=== PATIENT | male | born 1985 | race Caucasian/White ===

== ENCOUNTER 2016-09-19 16:22 | Emergency (ER) | payer BC ==
[~2016-09-19] VITALS: Wt 79.4 kg
[2016-09-19] MEDS ORDERED: SUBOXONE 8 MG-1 EACH SL (16:26)
[2016-09-19] MEDS ORDERED: CLINDAMYCIN150 MG PO (17:33)
[2016-09-19] MEDS ORDERED: NAPROSYN500 MG PO (17:34)
== END 2016-09-19 17:46 | disposition home or self-care (01) ==
LOC: ED 16:22
DX: S61.032A Puncture wound without foreign body of left thumb without damage to nail, initial encounter (principal); F17.200 Nicotine dependence, unspecified, uncomplicated; W22.8XXA Striking against or struck by other objects, initial encounter; Y93.89 Activity, other specified; Y92.9 Unspecified place or not applicable; Y99.9 Unspecified external cause status

== ENCOUNTER → 2018-05-24 | Outpatient (CLI) | payer BC ==
[~2018-05-24] MED LIST: CLINDAMYCIN150 MG PO; NAPROSYN500 MG PO; SUBOXONE 8 MG-1 EACH SL
[2018-05-24 14:37] LABS: URINE AMPHETAMINES < 1000 (1000ng/ml); URINE BARBITURATES < 200 (200ng/ml); URINE BENZODIAZEPINES < 200 (200ng/ml); URINE CANNABINOIDS (THC) < 50 (50ng/ml); URINE COCAINE < 300 (300ng/ml); URINE METHADONE < 300 (300ng/ml); URINE OPIATES < 300 (300ng/ml)
[2018-05-24 14:47] LABS: URINE PHENCYCLIDINE < 25 (25ng/ml)
== END | disposition home or self-care (01) ==
LOC: LAB 13:49
PROVIDERS: Internal Medicine
DX: F11.20 Opioid dependence, uncomplicated (principal)

== ENCOUNTER → 2019-06-13 | Outpatient (CLI) | payer BC ==
[2019-06-13 14:52] LABS: URINE AMPHETAMINES < 1000 (1000ng/ml); URINE BARBITURATES < 200 (200ng/ml); URINE BENZODIAZEPINES < 200 (200ng/ml); URINE CANNABINOIDS (THC) < 50 (50ng/ml); URINE COCAINE < 300 (300ng/ml); URINE METHADONE < 300 (300ng/ml); URINE OPIATES < 300 (300ng/ml); URINE PHENCYCLIDINE < 25 (25ng/ml)
== END | disposition home or self-care (01) ==
LOC: LAB 13:55
PROVIDERS: Internal Medicine
DX: F11.20 Opioid dependence, uncomplicated (principal)

== ENCOUNTER → 2020-02-04 | Outpatient (CLI) | payer BC ==
[2020-02-04 13:32] LABS: URINE AMPHETAMINES < 1000 (1000ng/ml); URINE BARBITURATES < 200 (200ng/ml); URINE BENZODIAZEPINES < 200 (200ng/ml); URINE CANNABINOIDS (THC) < 50 (50ng/ml); URINE COCAINE < 300 (300ng/ml); URINE METHADONE < 300 (300ng/ml); URINE OPIATES < 300 (300ng/ml)
[2020-02-04 13:33] LABS: URINE PHENCYCLIDINE < 25 (25ng/ml)
== END | disposition home or self-care (01) ==
LOC: LAB 12:25
PROVIDERS: ATTEND Internal Medicine
DX: F11.20 Opioid dependence, uncomplicated (principal)

== ENCOUNTER 2020-03-27 18:06 | Emergency (ER) | payer BC ==
[~2020-03-27] VITALS: Ht 177.8 cm; Wt 81.6 kg
[2020-03-27 18:47] LABS: BASO % 0.4 % (0.0-1.0); EOS % 0.3 % (1.0-4.0); HEMATOCRIT 42.5 % (42.0-52.0); LYMPH # 0.9 10*3/uL (1.3-4.4); LYMPH % 8.7 % (27.0-41.0); MEAN CORPUSCULAR HGB 31.8 pg (27.0-31.0); MEAN CORPUSCULAR HGB CONC 34.6 g/dl (33.0-37.0); MEAN PLATELET VOLUME 10.3 fl (9.6-12.3); MONO # 0.9 10*3/uL (0.1-1.0); MONO % 8.8 % (3.0-9.0); NEUT # 8.4 10*3/uL (2.3-7.9); NEUT % 81.6 % (47.0-73.0); PLATELET COUNT AUTOMATED 197 10*3/uL (130-400); RED BLOOD COUNT 4.62 10*6/uL (4.50-5.90); RED CELL DISTRI WIDTH 12.2 % (0-14.5); WHITE BLOOD COUNT 10.3 10*3/uL (4.8-10.8)
[2020-03-27 19:14] LABS: ALKALINE PHOSPHATASE 76 U/L (45-117); BUN 13 mg/dl (7-24); CHLORIDE 106 mmol/L (98-107); CREATININE 0.76 mg/dL (0.70-1.30); LIPASE 35 U/L (73-393); POTASSIUM 3.7 mmol/L (3.5-5.1); SGOT/AST 41 IU/L (3-35); SGPT/ALT 80 U/L (12-78); SODIUM 138 mmol/L (136-145)
[2020-03-27 19:54] LABS: BILIRUBIN Negative (Negative); BLOOD Negative (Negative); CLARITY Clear (Clear); COLOR Yellow (Yellow); GLUCOSE Negative (Negative); KETONE Trace (Negative); LEUKO ESTERASE Negative (Negative); NITRITE Negative (Negative); PH 7.5 (4.5-8.0); SPECIFIC GRAVITY 1.025 (1.001-1.030)
[2020-03-27 20:03] LABS: MUCOUS 1+
== END 2020-03-27 20:40 ==
LOC: ED 18:06
PROVIDERS: Nurse Practitioner Family
DX: R10.9 Unspecified abdominal pain (principal); Z79.899 Other long term (current) drug therapy

== ENCOUNTER → 2020-05-29 | Outpatient (CLI) | payer BC | END | disposition home or self-care (01) | LOC: COVID19 11:37 | PROVIDERS: ATTEND Internal Medicine | DX: Z20.822 Contact with and (suspected) exposure to COVID-19 (principal) ==

== ENCOUNTER → 2021-12-28 | Outpatient (CLI) | payer BC | END | disposition home or self-care (01) | LOC: COVID19 10:45 | PROVIDERS: ATTEND Internal Medicine | DX: U07.1 COVID-19 (principal) ==

== ENCOUNTER 2023-11-27 16:23 | Emergency (ER) | payer BC ==
[~2023-11-27] VITALS: Ht 177.8 cm; Wt 80.7 kg
[2023-11-27] MEDS ORDERED: EPINEPHrine/Lidocaine Hydroc 10 ML VIAL SC ONE (16:40)
== END 2023-11-27 18:24 | disposition home or self-care (01) ==
LOC: ED 16:23
DX: S51.812A Laceration without foreign body of left forearm, initial encounter (principal); W26.0XXA Contact with knife, initial encounter; Y93.89 Activity, other specified; Y92.009 Unspecified place in unspecified non-institutional (private) residence as the place of occurrence of the external cause; Y99.8 Other external cause status

== ENCOUNTER 2024-09-03 22:30 | Emergency (ER) | payer BC ==
[2024-09-04] MEDS ORDERED: Nicotine 21 MG PATCH T SCH ×2 (03:00→10:00)
[2024-09-04 03:09] LABS: BASO # 0.1 10*3/uL (0.0-0.1); BASO % 0.7 % (0.0-1.0); EOS % 0.6 % (1.0-4.0); HEMATOCRIT 43.4 % (42.0-52.0); MEAN CORPUSCULAR HGB CONC 34.1 g/dl (33.0-37.0); MEAN PLATELET VOLUME 9.5 fl (9.6-12.3); MONO # 0.6 10*3/uL (0.1-1.0); MONO % 8.4 % (3.0-9.0); NEUT # 5.3 10*3/uL (2.3-7.9); NEUT % 74.4 % (47.0-73.0); PLATELET COUNT AUTOMATED 299 10*3/uL (130-400); RED BLOOD COUNT 4.77 10*6/uL (4.50-5.90); WHITE BLOOD COUNT 7.2 10*3/uL (4.8-10.8)
[2024-09-04 03:39] LABS: ALKALINE PHOSPHATASE 137 U/L (46-116); BUN 12 mg/dl (9-23); CHLORIDE 109 mmol/L (98-107); POTASSIUM 3.6 mmol/L (3.4-5.1); SGPT/ALT 190 U/L (5-49); TOTAL PROTEIN 7.4 gm/dL (6.0-8.0)
[2024-09-04 03:41] LABS: ETHYL ALCOHOL 307.8 mg/dl (<3)
[2024-09-04] MEDS ORDERED: CLONAZEPAM0.5 M2 PO (12:34)
[2024-09-04] MEDS ORDERED: LORazepam 1 MG TAB PO ONE (16:10)
[2024-09-04] MEDS ORDERED: VISTARIL25 MG PO (16:11)
[2024-09-04] MEDS ORDERED: LEVETIRACETAM500 MG PO (17:37)
[2024-09-04] MEDS ORDERED: 'CLONIDINE0.1 MG PO (17:37)
== END 2024-09-04 16:19 | disposition home or self-care (01) ==
LOC: ED 22:30
PROVIDERS: Internal Medicine
DX: F43.22 Adjustment disorder with anxiety (principal); F10.129 Alcohol abuse with intoxication, unspecified; Z79.899 Other long term (current) drug therapy; Y90.8 Blood alcohol level of 240 mg/100 ml or more

== ENCOUNTER 2024-09-04 17:24 | Inpatient (IN) | payer BC ==
[~2024-09-04] VITALS: Ht 177.8 cm; Wt 79.9 kg
[~2024-09-04 17:24] MED LIST changes: +CLONAZEPAM0.5 M2 PO; +VISTARIL25 MG PO
[2024-09-04] MEDS ORDERED: FOLIC ACID 1 MG TAB PO ONE (17:25)
[2024-09-04] MEDS ORDERED: MAGNESIUM SULFATE 100 ML IV ONE (17:25)
[2024-09-04] MEDS ORDERED: diazePAM 5 MG TAB PO ONE (17:30)
[2024-09-04 17:36] VITALS: BP 138/95
[2024-09-04] MEDS ORDERED: LEVETIRACETAM500 MG PO (17:37)
[2024-09-04] MEDS ORDERED: 'CLONIDINE0.1 MG PO (17:37)
[2024-09-04] MEDS ORDERED: MULTIVITAMIN 1 TAB TAB PO SCH (18:24)
[2024-09-04] MEDS ORDERED: Thiamine 200 MG/2 ML VIAL IV SCH (18:25)
[2024-09-04] MEDS ORDERED: MULTIVITAMIN 1 TAB TAB PO ONE (18:30)
[2024-09-04] MEDS ORDERED: hydrOXYzine 50 MG CAP PO PRN (18:50)
[2024-09-04] MEDS ORDERED: BISACODYL 10 MG SUPP R PRN (18:50)
[2024-09-04] MEDS ORDERED: Ondansetron Hydrochloride 4 MG/2 ML VIAL IV PRN (18:50)
[2024-09-04] MEDS ORDERED: METHOCARBAMOL 750 MG TAB PO PRN (18:50)
[2024-09-04] MEDS ORDERED: Dicyclomine Hydrochloride 20 MG TAB PO PRN (18:50)
[2024-09-04] MEDS ORDERED: BISACODYL 5 MG TAB PO PRN (18:50)
[2024-09-04] MEDS ORDERED: Water, Sterile 10 ML VIAL IV PRN (18:50)
[2024-09-04] MEDS ORDERED: Magnesium Hydroxide 30 ML UDC PO PRN (18:50)
[2024-09-04] MEDS ORDERED: Ketorolac Tromethamine 15 MG/ML VIAL IV PRN (18:55)
[2024-09-04] MEDS ORDERED: diazePAM 10 MG/2 ML SYR IV PRN (19:00)
[2024-09-04 21:21] VITALS: BP 140/94
[2024-09-04] MEDS ORDERED: cloNIDine Hydrochloride 0.1 MG TAB PO PRN (21:45)
[2024-09-04] MEDS ORDERED: LEVETIRACETAM 500 MG TAB PO SCH (22:00)
[2024-09-04] MEDS ORDERED: LORazepam 1 MG TAB PO SCH (22:00)
[2024-09-04] MEDS ORDERED: Nicotine 21 MG PATCH T SCH (22:00)
[2024-09-04] MEDS ORDERED: Melatonin 3 MG TABLET PO ONE (22:50)
[2024-09-05] VITALS (11 sets, daily range): BP systolic 103–134; BP diastolic 41–98
[2024-09-05 04:45] LABS: BASO % 0.5 % (0.0-1.0); EOS % 0.7 % (1.0-4.0); HEMATOCRIT 38.3 % (42.0-52.0); MEAN CORPUSCULAR HGB 31.6 pg (27.0-31.0); MEAN CORPUSCULAR HGB CONC 34.7 g/dl (33.0-37.0); MEAN PLATELET VOLUME 9.6 fl (9.6-12.3); MONO # 0.5 10*3/uL (0.1-1.0); MONO % 12.3 % (3.0-9.0); NEUT # 2.5 10*3/uL (2.3-7.9); NEUT % 61.3 % (47.0-73.0); PLATELET COUNT AUTOMATED 221 10*3/uL (130-400); RED BLOOD COUNT 4.21 10*6/uL (4.50-5.90); RED CELL DISTRI WIDTH 12.8 % (0-14.5); WHITE BLOOD COUNT 4.1 10*3/uL (4.8-10.8)
[2024-09-05 05:10] LABS: ACT PARTIAL THROMBO TIME 26.4 SECONDS (20.0-32.1)
[2024-09-05 05:44] LABS: VITAMIN D, 25-HYDROXY 29.1 ng/mL (30-100)
[2024-09-05 05:46] LABS: ALKALINE PHOSPHATASE 98 U/L (46-116); BUN 8 mg/dl (9-23); CHLORIDE 102 mmol/L (98-107); CHOLESTEROL 217 mg/dL (<200); FREE T4 1.02 ng/dl (0.89-1.76); LDL CHOLESTEROL 96 mg/dL (9-159); POTASSIUM 3.5 mmol/L (3.4-5.1); SGPT/ALT 132 U/L (5-49); TOTAL PROTEIN 6.5 gm/dL (6.0-8.0); TRIGLYCERIDES 59 mg/dl (<150)
[2024-09-05] MEDS ORDERED: dexmedeTOMIDine IN 0.9 % NACL 100 ML IV SCH (09:10)
[2024-09-05] MEDS ORDERED: MULTIVITAMIN 1 TAB TAB PO SCH (10:00)
[2024-09-05] MEDS ORDERED: Enoxaparin Sodium 40 MG/0.4 ML SYR SC SCH (10:00)
[2024-09-05] MEDS ORDERED: Cholecalciferol 2,000 UNIT TABLET (50 MCG) PO SCH (10:00)
[2024-09-05] MEDS ORDERED: FOLIC ACID 1 MG TAB PO SCH (10:00)
[2024-09-06] VITALS (11 sets, daily range): BP systolic 108–132; BP diastolic 75–88
[2024-09-06] MEDS ORDERED: LORazepam 1 MG TAB PO PRN
[2024-09-06] MEDS ORDERED: LORazepam 1 MG TAB PO SCH
[2024-09-06 04:25] LABS: BASO % 0.3 % (0.0-1.0); EOS # 0.1 10*3/uL (0.0-0.4); EOS % 2.7 % (1.0-4.0); HEMATOCRIT 38.5 % (42.0-52.0); MEAN CELL VOLUME 92.3 fl (80.0-94.0); MEAN CORPUSCULAR HGB 31.7 pg (27.0-31.0); MEAN CORPUSCULAR HGB CONC 34.3 g/dl (33.0-37.0); MEAN PLATELET VOLUME 9.6 fl (9.6-12.3); MONO # 0.4 10*3/uL (0.1-1.0); MONO % 10.7 % (3.0-9.0); NEUT # 1.8 10*3/uL (2.3-7.9); NEUT % 54.1 % (47.0-73.0); PLATELET COUNT AUTOMATED 189 10*3/uL (130-400); RED BLOOD COUNT 4.17 10*6/uL (4.50-5.90); RED CELL DISTRI WIDTH 12.8 % (0-14.5); WHITE BLOOD COUNT 3.4 10*3/uL (4.8-10.8)
[2024-09-06 04:57] LABS: ALKALINE PHOSPHATASE 99 U/L (46-116); BUN 9 mg/dl (9-23); CHLORIDE 102 mmol/L (98-107); POTASSIUM 3.7 mmol/L (3.4-5.1); SGPT/ALT 131 U/L (5-49); TOTAL PROTEIN 6.3 gm/dL (6.0-8.0)
[2024-09-06 05:06] LABS: HBsAG SCREEN Negative (Negative); HEP B CORE Ab, IgM Negative (Negative)
[2024-09-06] MEDS ORDERED: Thiamine 100 MG TAB PO SCH (10:00)
[2024-09-07] VITALS (8 sets, daily range): BP systolic 126–165; BP diastolic 82–102
[2024-09-07 05:36] LABS: ALKALINE PHOSPHATASE 99 U/L (46-116); BUN 9 mg/dl (9-23); CHLORIDE 105 mmol/L (98-107); POTASSIUM 3.7 mmol/L (3.4-5.1); SGPT/ALT 135 U/L (5-49); TOTAL PROTEIN 6.4 gm/dL (6.0-8.0)
[2024-09-07 06:10] LABS: BASO % 0.3 % (0.0-1.0); EOS # 0.1 10*3/uL (0.0-0.4); EOS % 3.9 % (1.0-4.0); HEMATOCRIT 41.2 % (42.0-52.0); MEAN CELL VOLUME 90.7 fl (80.0-94.0); MEAN CORPUSCULAR HGB 31.3 pg (27.0-31.0); MEAN CORPUSCULAR HGB CONC 34.5 g/dl (33.0-37.0); MEAN PLATELET VOLUME 10.2 fl (9.6-12.3); MONO # 0.4 10*3/uL (0.1-1.0); MONO % 11.9 % (3.0-9.0); NEUT # 1.7 10*3/uL (2.3-7.9); NEUT % 50.6 % (47.0-73.0); PLATELET COUNT AUTOMATED 200 10*3/uL (130-400); RED BLOOD COUNT 4.54 10*6/uL (4.50-5.90); RED CELL DISTRI WIDTH 12.5 % (0-14.5); WHITE BLOOD COUNT 3.4 10*3/uL (4.8-10.8)
[2024-09-07] MEDS ORDERED: cloNIDine Hydrochloride 0.1 MG TAB PO ONE (15:40)
[2024-09-08] VITALS: BP 152/95
[2024-09-08 04:00] VITALS: BP 143/91
[2024-09-08 04:35] LABS: EOS # 0.2 10*3/uL (0.0-0.4); EOS % 3.6 % (1.0-4.0); HEMATOCRIT 41.1 % (42.0-52.0); MEAN CELL VOLUME 89.9 fl (80.0-94.0); MEAN CORPUSCULAR HGB 31.5 pg (27.0-31.0); MEAN PLATELET VOLUME 9.5 fl (9.6-12.3); MONO # 0.5 10*3/uL (0.1-1.0); NEUT % 46.9 % (47.0-73.0); PLATELET COUNT AUTOMATED 203 10*3/uL (130-400); RED BLOOD COUNT 4.57 10*6/uL (4.50-5.90); RED CELL DISTRI WIDTH 12.7 % (0-14.5); WHITE BLOOD COUNT 4.2 10*3/uL (4.8-10.8)
[2024-09-08 04:57] LABS: ALKALINE PHOSPHATASE 99 U/L (46-116); BUN 9 mg/dl (9-23); CHLORIDE 103 mmol/L (98-107); POTASSIUM 3.6 mmol/L (3.4-5.1); SGPT/ALT 129 U/L (5-49); TOTAL PROTEIN 6.4 gm/dL (6.0-8.0)
[2024-09-08 08:00] VITALS: BP 149/102
[2024-09-08] MEDS ORDERED: VITAMIN D350 MCG PO (12:59)
[2024-09-08] MEDS ORDERED: B COMPLEX1 EACH PO (12:59)
== END 2024-09-08 14:21 | disposition home or self-care (01) | DRG 897 ==
LOC: ED 17:24 → EDHOLD 17:39 → ICCU 09-05 11:02
PROVIDERS: Internal Medicine; Student in an Organized Health Care Education/Training Program; ADMIT Internal Medicine; ATTEND Internal Medicine
DX: F10.231 Alcohol dependence with withdrawal delirium (principal); E87.0 Hyperosmolality and hypernatremia; R74.01 Elevation of levels of liver transaminase levels; I10 Essential (primary) hypertension; F41.9 Anxiety disorder, unspecified; K76.0 Fatty (change of) liver, not elsewhere classified; D72.819 Decreased white blood cell count, unspecified; E55.9 Vitamin D deficiency, unspecified; F17.290 Nicotine dependence, other tobacco product, uncomplicated; Z79.899 Other long term (current) drug therapy; Z81.1 Family history of alcohol abuse and dependence; Z90.49 Acquired absence of other specified parts of digestive tract; Z79.01 Long term (current) use of anticoagulants; Z79.2 Long term (current) use of antibiotics; Y90.0 Blood alcohol level of less than 20 mg/100 ml

== ENCOUNTER 2024-12-07 00:34 | Emergency (ER) | payer BC ==
[~2024-12-07] VITALS: Wt 79.4 kg
[~2024-12-07 00:34] MED LIST changes: +'CLONIDINE0.1 MG PO; +B COMPLEX1 EACH PO; +LEVETIRACETAM500 MG PO; +VITAMIN D350 MCG PO
== END 2024-12-07 02:18 ==
LOC: ED 00:34
DX: S00.83XA Contusion of other part of head, initial encounter (principal); S20.229A Contusion of unspecified back wall of thorax, initial encounter; R07.81 Pleurodynia; F17.290 Nicotine dependence, other tobacco product, uncomplicated; Z79.899 Other long term (current) drug therapy; Z90.89 Acquired absence of other organs; Z90.49 Acquired absence of other specified parts of digestive tract; W22.8XXA Striking against or struck by other objects, initial encounter; Y93.89 Activity, other specified; Y92.89 Other specified places as the place of occurrence of the external cause; Y99.8 Other external cause status

== ENCOUNTER 2024-12-07 15:12 | Emergency (ER) | payer BC ==
[2024-12-07] MEDS ORDERED: LEVETIRACETAM IN NACL (ISO-OS) 100 ML IV ONE (15:25)
[2024-12-07 15:35] LABS: BASO # 0.0 10*3/uL (0.0-0.1); BASO % 0.4 % (0.0-1.0); EOS # 0.0 10*3/uL (0.0-0.4); EOS % 0.2 % (1.0-4.0); MEAN CELL VOLUME 90.0 fl (80.0-94.0); MEAN CORPUSCULAR HGB 30.9 pg (27.0-31.0); MEAN PLATELET VOLUME 9.4 fl (9.6-12.3); MONO # 0.6 10*3/uL (0.1-1.0); MONO % 10.9 % (3.0-9.0); NEUT # 4.0 10*3/uL (2.3-7.9); NEUT % 77.6 % (47.0-73.0); NUCLEATED RED BLOOD CELL 0.0 % (0.0-0.0); NUCLEATED RED BLOOD CELL 0.0 10*3/uL (0.0-0.0); PLATELET COUNT AUTOMATED 253 10*3/uL (130-400); RED CELL DISTRI WIDTH 13.3 % (0-14.5)
[2024-12-07 16:11] LABS: BUN 16 mg/dl (9-23)
== END 2024-12-07 17:57 | disposition home or self-care (01) ==
LOC: ED 15:12
PROVIDERS: Emergency Medicine
DX: S20.211A Contusion of right front wall of thorax, initial encounter (principal); S00.11XA Contusion of right eyelid and periocular area, initial encounter; R56.9 Unspecified convulsions; Z91.148 Patient's other noncompliance with medication regimen for other reason; F10.10 Alcohol abuse, uncomplicated; M54.2 Cervicalgia; F17.290 Nicotine dependence, other tobacco product, uncomplicated; Z79.899 Other long term (current) drug therapy; Z90.49 Acquired absence of other specified parts of digestive tract; Z90.89 Acquired absence of other organs; W22.8XXA Striking against or struck by other objects, initial encounter; Y93.89 Activity, other specified; Y92.89 Other specified places as the place of occurrence of the external cause; Y99.8 Other external cause status